=== PATIENT | male | born 1945 | race Caucasian/White ===

== ENCOUNTER 2018-01-11 12:19 | Inpatient (IN) | payer MEDICARE, BC ==
[2018-01-11] MEDS ORDERED: cefTRIAXone\\ROCEPHIN 2 GM VIAL ONE (12:48)
[2018-01-11 13:22] LABS: ALT (SGPT) 13 U/L (8-55); AST (SGOT) 14 U/L (5-34); Albumin 3.7 g/dL (3.4-4.8); Alkaline Phosphatase 71 U/L (40-150); Anion Gap 15 mmol/L (10-20); BUN (Urea Nitrogen) 18 mg/dL (8.4-25.7); Bilirubin, Total 2.2 mg/dL (0.2-1.2); Calc. Creatinine Clearance 0 mL/min (70-130); Calcium 9.2 mg/dL (7.8-10.44); Carbon Dioxide 23 mmol/L (23-31); Chloride 101 mmol/L (98-107); Estimated GFR-MDRD 39; Globulin 3.2 g/dL (2.4-3.5); Glucose 201 mg/dL (83-110); Potassium 3.2 mmol/L (3.5-5.1); Protein, Total 6.9 g/dL (5.8-8.1); Sodium 136 mmol/L (136-145)
[2018-01-11 13:27] LABS: CKMB 1.4 ng/mL (0-6.6); Troponin I Less than 0.010 ng/mL (< 0.028)
[2018-01-11 13:29] LABS: Clarity Cloudy (Clear); Leukocyte Moderate (Negative); Specific Gravity, Urine 1.025 (1.005-1.030); pH, Urine 5.5 (5.0-9.0)
[2018-01-11 13:30] LABS: Bilirubin Small (Negative); Blood, Urine Moderate (Negative); Glucose, Urine (Dipstick) Negative (Negative); Nitrite Positive (Negative); Protein, Urine (Dipstick) 100 mg/dL (Neg-Trace)
[2018-01-11 13:32] LABS: Bacteria/HPF 2+ HPF (None Seen); Crystals/HPF None Seen HPF (Negative); Hyaline Casts/LPF NONE SEEN LPF (0-3 Hyaline); Other Casts/LPF None Seen LPF (0-3 Hyaline); Oval Fat Bodies/HPF None Seen HPF (None Seen); Renal Epithelial None Seen HPF (0-3); Sperm/HPF None Seen HPF (None Seen); Squamous Epithelial None Seen HPF (0-3); Transitional Epithelial NONE SEEN HPF (0-3); Trichomonas/HPF None Seen HPF (None Seen); Yeast-All Forms None Seen HPF (None Seen)
[2018-01-11 13:37] LABS: Band 4 % (5-11); Hemoglobin 14.9 g/dL (14.0-18.0); Lymphocytes 4 % (21-51); MDiff Complete? YES; Macrocytosis SLIGHT = 6-15 cells (100X) (0-5/hpf); Mean Corpuscular HGB CONC 36.9 g/dL (32.0-36.0); Mean Corpuscular Hemoglobin 32.7 pg (27.0-31.0); Mean Corpuscular Volume 88.5 fL (78.0-98.0); Mean Platelet Volume 7.8 fL (7.4-10.4); Monocytes 10 % (0-10); Neutrophil 82 % (42-75); Platelet Clumps SLIGHT; Platelet Count 203 thou/uL (130-400); Polychromasia SLIGHT = 2-3 cells (100X) (0-2/hpf); RBC Distribution Width 11.8 % (11.5-14.5); Red Blood Cell (RBC) Count 4.54 mill/uL (4.70-6.10)
[2018-01-11] MEDS ORDERED: Potassium Chloride 20 MEQ TAB ONE (13:52)
--- NOTE | 2018-01-11 14:14 | RAD ---
CHEST ONE VIEW: Comparison: 01-03-07 History: Fever. FINDINGS: Normal cardiac silhouette. Pulmonary vessels and hilum are normal. Costophrenic angles are clear. No consolidation or mass. No pneumothorax or osseous abnormality. IMPRESSION: No acute cardiopulmonary process. POS: [facility]
[2018-01-11] MEDS ORDERED: Ondansetron ODT 4 MG TAB PO PRN (16:38)
[2018-01-11] MEDS ORDERED: Ondansetron PF 4 MG/2 ML Vial IVP PRN (16:38)
[2018-01-11] MEDS ORDERED: traMADol HCl 50 MG TAB PO PRN (18:18)
[2018-01-11] MEDS ORDERED: PROVENTIL INHALER 6.7 G (200 INHALATIONS) INH PRN ×3 (18:18→18:46)
[2018-01-11] MEDS ORDERED: HumaLOG 300 UNITS/3 ML VIAL SC PRN (18:22)
[2018-01-11] MEDS ORDERED: Dextrose 50% Abboject 50 ML SYRINGE SLOW IVP PRN (18:22)
[2018-01-11] MEDS ORDERED: Dextrose 5% in Water 1,000 ML IV PRN (18:22)
[2018-01-11] MEDS: Sodium Chloride 0.9% 1,000 ML IV SCH (18:35)
[2018-01-11] MEDS: Gabapentin 300 MG CAP PO SCH (21:01)
[2018-01-11] MEDS: Mometasone/Formoterol 60 PUFF AER INH SCH (21:01)
[2018-01-11] MEDS: Famotidine 20 MG TAB PO SCH (21:01)
[2018-01-11] MEDS: glipiZIDE 5 MG TAB PO SCH (21:01)
[2018-01-11] MEDS: Gabapentin 100 MG CAP PO SCH (21:01)
[2018-01-11] MEDS ORDERED: clonazePAM 1 MG TAB PO SCH (21:15)
[2018-01-11] MEDS ORDERED: Amitriptyline HCl 25 MG TAB PO SCH (21:15)
[2018-01-11] MEDS ORDERED: Nystatin Cream 15 GM TUBE TOP SCH (22:15)
[2018-01-12] MEDS: Sodium Chloride 0.9% 1,000 ML IV SCH ×4 (00:19→23:17)
[2018-01-12 05:21] LABS: #Basophils 0.1 thou/uL (0.0-0.2); #Lymphocytes 1.7 thou/uL (1.20-3.40); #Monocytes 1.7 thou/uL (0.11-0.59); #Neutrophils 19.6 thou/uL (1.40-6.50); %Basophils 0.3 % (0.0-1.0); %Eosinophils 0.1 % (0.0-10.0); %Lymphocytes 7.5 % (21.0-51.0); %Monocytes 7.3 % (0.0-10.0); %Neutrophils 84.8 % (42.0-75.0); Hemoglobin 13.4 g/dL (14.0-18.0); Mean Corpuscular HGB CONC 35.8 g/dL (32.0-36.0); Mean Corpuscular Hemoglobin 32.3 pg (27.0-31.0); Mean Corpuscular Volume 90.2 fL (78.0-98.0); Mean Platelet Volume 8.1 fL (7.4-10.4); Platelet Count 164 thou/uL (130-400); Red Blood Cell (RBC) Count 4.15 mill/uL (4.70-6.10); White Blood Cell (WBC) Count 23.2 thou/uL (4.8-10.8)
[2018-01-12 05:53] LABS: ALT (SGPT) 10 U/L (8-55); AST (SGOT) 15 U/L (5-34); Albumin 3.1 g/dL (3.4-4.8); Alkaline Phosphatase 61 U/L (40-150); Anion Gap 13 mmol/L (10-20); BUN (Urea Nitrogen) 18 mg/dL (8.4-25.7); Bilirubin, Total 1.2 mg/dL (0.2-1.2); Calc. Creatinine Clearance 89 mL/min (70-130); Calcium 8.3 mg/dL (7.8-10.44); Carbon Dioxide 21 mmol/L (23-31); Chloride 105 mmol/L (98-107); Estimated GFR-MDRD 46; Globulin 2.8 g/dL (2.4-3.5); Glucose 97 mg/dL (83-110); Potassium 3.2 mmol/L (3.5-5.1); Protein, Total 5.9 g/dL (5.8-8.1); Sodium 136 mmol/L (136-145)
[2018-01-12] MEDS: Mometasone/Formoterol 60 PUFF AER INH SCH ×2 (06:28→18:27)
[2018-01-12] MEDS: Gabapentin 300 MG CAP PO SCH ×3 (08:37→21:15)
[2018-01-12] MEDS: Gabapentin 100 MG CAP PO SCH ×2 (08:38→15:00)
[2018-01-12] MEDS: Aspirin 81 mg Enteric Coated Tablet PO SCH (08:38)
[2018-01-12] MEDS: Potassium Chloride 10 MEQ TAB PO SCH (08:38)
[2018-01-12] MEDS: glipiZIDE 5 MG TAB PO SCH ×2 (08:38→22:17)
[2018-01-12] MEDS: Nystatin Cream 15 GM TUBE TOP SCH ×2 (08:48→22:17)
[2018-01-12] MEDS ORDERED: Amitriptyline HCl 25 MG TAB PO SCH (09:00)
[2018-01-12] MEDS ORDERED: clonazePAM 1 MG TAB PO SCH (09:00)
[2018-01-12] MEDS: Acetaminophen 325 MG TAB PO PRN (09:12)
[2018-01-12] MEDS ORDERED: cefTRIAXone\\ROCEPHIN 2 GM in Sodium Chloride 0.9% 100 ML IVPB SCH ×2 (13:00→13:15)
[2018-01-12] MEDS ORDERED: cefTRIAXone\\ROCEPHIN 1 GM in Sodium Chloride 0.9% 100 ML IVPB SCH (13:00)
[2018-01-12] MEDS: Levofloxacin 750 mg/D5W 500 MG in Premix Bag 1 BAG IVPB SCH (16:42)
[2018-01-12] MEDS: Famotidine 20 MG TAB PO SCH (21:15)
[2018-01-12] MEDS: Amitriptyline HCl 25 MG TAB PO SCH (21:15)
[2018-01-12] MEDS: clonazePAM 1 MG TAB PO SCH (21:15)
[2018-01-12] MEDS: Nystatin Powder 15 GM BOT TOP SCH (23:19)
[2018-01-13] MEDS: Sodium Chloride 0.9% 1,000 ML IV SCH ×4 (04:45→18:08)
[2018-01-13 05:50] LABS: #Basophils 0.1 thou/uL (0.0-0.2); #Eosinphils 0.2 thou/uL (0.0-0.7); #Lymphocytes 1.5 thou/uL (1.20-3.40); #Monocytes 0.9 thou/uL (0.11-0.59); #Neutrophils 11.7 thou/uL (1.40-6.50); %Basophils 0.5 % (0.0-1.0); %Eosinophils 1.7 % (0.0-10.0); %Lymphocytes 10.4 % (21.0-51.0); %Monocytes 6.2 % (0.0-10.0); %Neutrophils 81.2 % (42.0-75.0); Mean Corpuscular Hemoglobin 31.5 pg (27.0-31.0); Mean Corpuscular Volume 90.1 fL (78.0-98.0); Platelet Count 153 thou/uL (130-400); RBC Distribution Width 12.1 % (11.5-14.5); Red Blood Cell (RBC) Count 3.81 mill/uL (4.70-6.10); White Blood Cell (WBC) Count 14.4 thou/uL (4.8-10.8)
[2018-01-13 06:02] LABS: ALT (SGPT) 19 U/L (8-55); AST (SGOT) 95 U/L (5-34); Albumin 2.9 g/dL (3.4-4.8); Alkaline Phosphatase 61 U/L (40-150); Anion Gap 11 mmol/L (10-20); BUN (Urea Nitrogen) 19 mg/dL (8.4-25.7); Bilirubin, Total 0.5 mg/dL (0.2-1.2); Calc. Creatinine Clearance 100 mL/min (70-130); Calcium 8.1 mg/dL (7.8-10.44); Carbon Dioxide 21 mmol/L (23-31); Chloride 109 mmol/L (98-107); Estimated GFR-MDRD 53; Globulin 2.7 g/dL (2.4-3.5); Glucose 85 mg/dL (83-110); Potassium 3.3 mmol/L (3.5-5.1); Protein, Total 5.6 g/dL (5.8-8.1); Sodium 138 mmol/L (136-145)
[2018-01-13] MEDS: Mometasone/Formoterol 60 PUFF AER INH SCH ×2 (06:07→18:04)
[2018-01-13] MEDS: Acetaminophen 325 MG TAB PO PRN (08:24)
[2018-01-13] MEDS: Gabapentin 300 MG CAP PO SCH ×2 (08:24→21:24)
[2018-01-13] MEDS: Potassium Chloride 10 MEQ TAB PO SCH (08:24)
[2018-01-13] MEDS: Aspirin 81 mg Enteric Coated Tablet PO SCH (08:24)
[2018-01-13] MEDS: Floranex Packet PO SCH (08:25)
[2018-01-13] MEDS: Nystatin Powder 15 GM BOT TOP SCH ×2 (08:27→21:27)
[2018-01-13] MEDS ORDERED: glipiZIDE 5 MG TAB PO SCH (09:00)
[2018-01-13] MEDS: HumaLOG 300 UNITS/3 ML VIAL SC PRN (12:43)
[2018-01-13] MEDS: cefTRIAXone\\ROCEPHIN 2 GM in Sodium Chloride 0.9% 100 ML IVPB SCH (12:46)
[2018-01-13] MEDS: Levofloxacin 750 mg/D5W 500 MG in Premix Bag 1 BAG IVPB SCH (16:56)
[2018-01-13] MEDS: Amitriptyline HCl 25 MG TAB PO SCH (21:24)
[2018-01-13] MEDS: Famotidine 20 MG TAB PO SCH (21:24)
[2018-01-13] MEDS: clonazePAM 1 MG TAB PO SCH (21:24)
[2018-01-13 22:53] VITALS: BMI 44.8
[2018-01-14] MEDS: Sodium Chloride 0.9% 1,000 ML IV SCH (03:22)
[2018-01-14] MEDS: Mometasone/Formoterol 60 PUFF AER INH SCH ×2 (06:10→18:35)
[2018-01-14] MEDS: Floranex Packet PO SCH (08:09)
[2018-01-14] MEDS: Aspirin 81 mg Enteric Coated Tablet PO SCH (08:09)
[2018-01-14] MEDS: Gabapentin 300 MG CAP PO SCH ×2 (08:09→20:37)
[2018-01-14] MEDS: Potassium Chloride 10 MEQ TAB PO SCH (08:10)
[2018-01-14] MEDS: Acetaminophen 325 MG TAB PO PRN (08:10)
[2018-01-14] MEDS: Nystatin Powder 15 GM BOT TOP SCH ×2 (08:10→20:38)
[2018-01-14] MEDS: cefTRIAXone\\ROCEPHIN 2 GM in Sodium Chloride 0.9% 100 ML IVPB SCH (12:46)
[2018-01-14] MEDS: Levofloxacin 750 mg/D5W 500 MG in Premix Bag 1 BAG IVPB SCH (16:58)
[2018-01-14] MEDS: HumaLOG 300 UNITS/3 ML VIAL SC PRN (18:39)
[2018-01-14] MEDS: Famotidine 20 MG TAB PO SCH (20:33)
[2018-01-14] MEDS: Amitriptyline HCl 25 MG TAB PO SCH (20:35)
[2018-01-14] MEDS: clonazePAM 1 MG TAB PO SCH (20:37)
--- NOTE | 2018-01-14 23:42 | HP ---
CHIEF COMPLAINT: Weakness and dizziness. HISTORY OF PRESENT ILLNESS: Patient is a 72-year-old white male who presented to the emergency room with increased weakness and dizziness over 2 weeks, worse within 24 hours prior to admission. The pa maryan says he got up off the floor and fell. He could not get up and family brought him to the [facility] ency room. The patient reports some increased low back pain and increased urinary incontinence with urgency. He also had fevers and chills up to greater than 102 over the last 24 hours with decreased appetite and increased lethargy. The patient says when he fell, he had no chest pain or shortness of breath. He did feel some dizziness which he has had chronically off and on which he took some mecli zine for in the past. No significant injury reported. No head injury, no loss of consciousness, no seizure-like activity when he fell. In the emergency room, the patient is a full evaluation and was found to be consistent with sepsis secondary to urinary tract infection requiring admission to the [facility]. PAST MEDICAL HISTORY: 1. Chronic obstructive pulmonary disease mild, on inhalers. 2. Noninsulin dependent diabetes mellitus. 3. Gastroesophageal reflux disease. 4. Hyperlipidemia. 5. Chronic low back pain due to degenerative joint disease. 6. History of mild renal insufficiency. PAST SURGICAL HISTORY: Includes bilateral knee surgery. SOCIAL HISTORY: Patient denies any recent alcohol, smoking or social drug use. The patient is usual ly independent in all activities of daily living. He is retired from [employer]. He has h ad increased weakness over the last few weeks as in HPI. MEDICATIONS: Ranitidine 300 mg daily, aspirin 81 mg daily, tramadol 50 mg p.o. q.6 hours p.r.n. pain , clonazepam 1 mg p.o. at bedtime for insomnia, amitriptyline 50 mg p.o. at bedtime for insomnia, maryan apentin 800 mg t.i.d., glipizide 5 mg b.i.d., losartan/hydrochlorothiazide 100/25 daily, meclizine 25 mg p.o. q.8 hours p.r.n. dizziness. ALLERGIES: No known drug allergies. REVIEW OF SYSTEMS: Patient denies any recent visual changes, no URI-like symptoms, no sore throat. Patient denies any chest pain, no shortness of breath, no nausea, vomiting or diarrhea. Patient has had decreased appetite. Reports increased urinary urgency with frequency and incontinence. No hemat uria reported. The patient denies any significant weight loss nor weight gain, but has a generalized dizziness and weakness as reported in HPI. No recent rashes noted. Low back pain is worse than usu al, but he has chronic low back pain. Patient denies any depression. PHYSICAL EXAMINATION: GENERAL: Obese white male, alert and oriented, but lethargic, in no obvious distress. VITAL SIGNS: Blood pressure 121/80, respiratory rate was 26, O2 sat was 2 liters, 93% on admission, pulse was 110, temperature 101.2. HEENT: Atraumatic, normocephalic. Extraocular movements are intact. Pupils are equal, round, and r eactive to light and accommodation. Oropharynx; mucous membranes were dry. NECK: Supple, no masses palpated. CHEST: Clear to auscultation bilaterally. HEART: Irregular and rapid rate and rhythm. ABDOMEN: Obese, soft, nontender, nondistended, no masses were palpated. GENITOURINARY: Showed some rash in the intertrigo area consistent with tinea of the groin. No edema was noted to the lower extremities. BACK: Had no obvious CVA tenderness. There was some paravertebral mild tenderness in the lower lumb ar region. LABORATORY DATA AND IMAGING DATA: CBC; he had a white count 29,000 with H&H of 14.9 and 40.2. Chemi stry was significant for sodium 136, potassium 3.2, creatinine 1.74, BUN of 18, glucose was 201. Uri ne was significant for positive protein, moderate leukocyte esterase, greater than 50 WBCs and 2+ tessy teria. Urine and blood cultures are pending. Chest x-ray and EKG showed no acute findings. ASSESSMENT AND PLAN: 1. Sepsis. The patient is afebrile, high white count, had a recent fall and some decreased mentatio n. His lactic acid though was in normal range. Patient appears to be dehydrated. We will start him on IV fluids, hydration, oxygen as needed and IV broad spectrum antibiotics. 2. Urinary tract infection, which was likely the cause of patient's sepsis. The patient has no hist ory of BPH. No urinary problems in the past. We will see how his urinary status does with IV antibi otics, Levaquin 500 mg IV q.24 hours and Rocephin 2 mg IV q.24 hours. 3. Noninsulin dependent diabetes mellitus. We will place the patient on routine medications. Hold if his appetite decreases and a sliding scale insulin as needed. 4. Hypertension. We will hold losartan and hydrochlorothiazide at this time since the patient's blo od pressure is low and he has signs of sepsis. DISPOSITION: The patient will likely be discharged to home. May need extended stay with swing bed i f he continues to be weak and debilitated. The patient is a FULL CODE. His case and care plan was d iscussed with both patient and .
[2018-01-15 05:03] LABS: #Basophils 0.1 thou/uL (0.0-0.2); #Eosinphils 0.2 thou/uL (0.0-0.7); #Lymphocytes 1.3 thou/uL (1.20-3.40); #Monocytes 0.9 thou/uL (0.11-0.59); #Neutrophils 5.4 thou/uL (1.40-6.50); %Basophils 0.8 % (0.0-1.0); %Eosinophils 2.8 % (0.0-10.0); %Lymphocytes 16.2 % (21.0-51.0); %Monocytes 10.8 % (0.0-10.0); %Neutrophils 69.4 % (42.0-75.0); Hemoglobin 11.9 g/dL (14.0-18.0); Mean Corpuscular HGB CONC 34.3 g/dL (32.0-36.0); Mean Corpuscular Hemoglobin 31.2 pg (27.0-31.0); Mean Platelet Volume 8.1 fL (7.4-10.4); Platelet Count 176 thou/uL (130-400); RBC Distribution Width 12.1 % (11.5-14.5); Red Blood Cell (RBC) Count 3.81 mill/uL (4.70-6.10); White Blood Cell (WBC) Count 7.8 thou/uL (4.8-10.8)
[2018-01-15 05:13] LABS: ALT (SGPT) 19 U/L (8-55); AST (SGOT) 20 U/L (5-34); Alkaline Phosphatase 64 U/L (40-150); Anion Gap 13 mmol/L (10-20); BUN (Urea Nitrogen) 16 mg/dL (8.4-25.7); Bilirubin, Total 0.3 mg/dL (0.2-1.2); Calc. Creatinine Clearance 103 mL/min (70-130); Calcium 8.2 mg/dL (7.8-10.44); Carbon Dioxide 22 mmol/L (23-31); Chloride 108 mmol/L (98-107); Estimated GFR-MDRD 52; Globulin 2.8 g/dL (2.4-3.5); Glucose 169 mg/dL (83-110); Potassium 3.5 mmol/L (3.5-5.1); Protein, Total 5.8 g/dL (5.8-8.1); Sodium 139 mmol/L (136-145)
[2018-01-15 05:59] VITALS: BP 111/67; TEMP 97.8
[2018-01-15] MEDS: Mometasone/Formoterol 60 PUFF AER INH SCH (06:23)
[2018-01-15] MEDS ORDERED: Ibuprofen 100 MG/5 ML UDCUP ONE (08:13)
[2018-01-15] MEDS: Gabapentin 300 MG CAP PO SCH (08:14)
[2018-01-15] MEDS: Floranex Packet PO SCH (08:14)
[2018-01-15] MEDS: Aspirin 81 mg Enteric Coated Tablet PO SCH (08:14)
[2018-01-15] MEDS: Potassium Chloride 10 MEQ TAB PO SCH (08:14)
[2018-01-15] MEDS: Nystatin Powder 15 GM BOT TOP SCH (08:15)
== END 2018-01-15 09:53 | disposition swing bed (61) | DRG 872 ==
LOC: BURERS 12:19 → BURMED 14:28
PROVIDERS: ADMIT Family Medicine; ATTEND Family Medicine
DX: A41.9 Sepsis, unspecified organism (principal); N39.0 Urinary tract infection, site not specified; Z68.41 Body mass index [BMI] 40.0-44.9, adult; J44.9 Chronic obstructive pulmonary disease, unspecified; E11.9 Type 2 diabetes mellitus without complications; K21.9 Gastro-esophageal reflux disease without esophagitis; E78.5 Hyperlipidemia, unspecified; M19.90 Unspecified osteoarthritis, unspecified site; E66.9 Obesity, unspecified; E86.0 Dehydration; I10 Essential (primary) hypertension; Z91.81 History of falling; F41.9 Anxiety disorder, unspecified; G47.33 Obstructive sleep apnea (adult) (pediatric)
CPT/HCPCS: 36415; 36416; 71045; 80053; 81003; 81015; 82553; 83605; 84443; 84484; 85025; 87040; 87077; 87086; 87186; 87804; 93005; 94664; 96365; 96366; G8978-GP-CM; G8979-GP-CL; G8987-GO-CL; G8988-GO-CI; J0696; J1956; J7050

== ENCOUNTER 2018-01-15 10:00 | Inpatient (IN) | payer MEDICARE, BC ==
[2018-01-15 11:25] VITALS: BMI 44.8
[2018-01-15] MEDS ORDERED: Acetaminophen 325 MG TAB PO PRN (11:30)
[2018-01-15] MEDS ORDERED: Dextrose 50% Abboject 50 ML SYRINGE IVP PRN (11:31)
[2018-01-15] MEDS ORDERED: Dextrose 5% in Water 1,000 ML IV PRN (11:31)
[2018-01-15] MEDS ORDERED: PROVENTIL INHALER 6.7 G (200 INHALATIONS) INH PRN (11:31)
[2018-01-15] MEDS ORDERED: HumaLOG 300 UNITS/3 ML VIAL SC PRN (11:32)
[2018-01-15] MEDS ORDERED: Ondansetron PF 4 MG/2 ML Vial IVP PRN (11:33)
[2018-01-15] MEDS ORDERED: Ondansetron ODT 4 MG TAB PO PRN (11:34)
[2018-01-15] MEDS ORDERED: traMADol HCl 50 MG TAB PO PRN (11:38)
[2018-01-15] MEDS: cefTRIAXone\\ROCEPHIN 2 GM in Sodium Chloride 0.9% 100 ML IVPB SCH (13:25)
[2018-01-15] MEDS: HumaLOG 300 UNITS/3 ML VIAL SC PRN (17:37)
[2018-01-15] MEDS: Mometasone/Formoterol 60 PUFF AER INH SCH (18:11)
[2018-01-15] MEDS: Amitriptyline HCl 25 MG TAB PO SCH (19:39)
[2018-01-15] MEDS: clonazePAM 1 MG TAB PO SCH (19:39)
[2018-01-15] MEDS: Gabapentin 300 MG CAP PO SCH (19:40)
[2018-01-15] MEDS: Famotidine 20 MG TAB PO SCH (19:40)
[2018-01-15] MEDS: Nystatin Powder 15 GM BOT TOP SCH (19:41)
[2018-01-16] MEDS: Mometasone/Formoterol 60 PUFF AER INH SCH ×2 (06:10→18:22)
[2018-01-16] MEDS: Potassium Chloride 10 MEQ TAB PO SCH (08:01)
[2018-01-16] MEDS: HumaLOG 300 UNITS/3 ML VIAL SC PRN ×3 (08:01→18:21)
[2018-01-16] MEDS: Floranex Packet PO SCH (08:02)
[2018-01-16] MEDS: Gabapentin 300 MG CAP PO SCH ×2 (08:02→19:59)
[2018-01-16] MEDS: Nystatin Powder 15 GM BOT TOP SCH ×2 (08:02→20:00)
[2018-01-16] MEDS: Aspirin 81 mg Enteric Coated Tablet PO SCH (08:02)
[2018-01-16] MEDS: cefTRIAXone\\ROCEPHIN 2 GM in Sodium Chloride 0.9% 100 ML IVPB SCH (13:19)
[2018-01-16] MEDS: Amitriptyline HCl 25 MG TAB PO SCH (19:59)
[2018-01-16] MEDS: clonazePAM 1 MG TAB PO SCH (20:00)
[2018-01-16] MEDS: Famotidine 20 MG TAB PO SCH (20:00)
[2018-01-17] MEDS: Mometasone/Formoterol 60 PUFF AER INH SCH ×2 (06:38→18:43)
[2018-01-17] MEDS: Potassium Chloride 10 MEQ TAB PO SCH (08:43)
[2018-01-17] MEDS: Floranex Packet PO SCH (08:43)
[2018-01-17] MEDS: Gabapentin 300 MG CAP PO SCH ×2 (08:43→20:56)
[2018-01-17] MEDS: Aspirin 81 mg Enteric Coated Tablet PO SCH (08:43)
[2018-01-17] MEDS: Nystatin Powder 15 GM BOT TOP SCH ×2 (08:44→20:58)
[2018-01-17] MEDS: cefTRIAXone\\ROCEPHIN 2 GM in Sodium Chloride 0.9% 100 ML IVPB SCH (12:51)
[2018-01-17] MEDS: Amitriptyline HCl 25 MG TAB PO SCH (20:56)
[2018-01-17] MEDS: Famotidine 20 MG TAB PO SCH (20:57)
[2018-01-17] MEDS: clonazePAM 1 MG TAB PO SCH (20:57)
[2018-01-18] MEDS: Mometasone/Formoterol 60 PUFF AER INH SCH (05:44)
[2018-01-18] MEDS: Potassium Chloride 10 MEQ TAB PO SCH (08:36)
[2018-01-18] MEDS: Floranex Packet PO SCH (08:37)
[2018-01-18] MEDS: Gabapentin 300 MG CAP PO SCH (08:37)
[2018-01-18] MEDS: Aspirin 81 mg Enteric Coated Tablet PO SCH (08:37)
[2018-01-18] MEDS: Nystatin Powder 15 GM BOT TOP SCH (08:38)
[2018-01-18] MEDS: cefTRIAXone\\ROCEPHIN 2 GM in Sodium Chloride 0.9% 100 ML IVPB SCH (13:38)
[2018-01-18 15:00] LABS: #Basophils 0.1 thou/uL (0.0-0.2); #Eosinphils 0.3 thou/uL (0.0-0.7); #Lymphocytes 1.9 thou/uL (1.20-3.40); #Neutrophils 4.6 thou/uL (1.40-6.50); %Basophils 1.3 % (0.0-1.0); %Eosinophils 3.6 % (0.0-10.0); %Lymphocytes 23.8 % (21.0-51.0); %Monocytes 12.7 % (0.0-10.0); %Neutrophils 58.6 % (42.0-75.0); Hemoglobin 12.5 g/dL (14.0-18.0); Mean Corpuscular HGB CONC 35.3 g/dL (32.0-36.0); Mean Corpuscular Hemoglobin 31.6 pg (27.0-31.0); Mean Corpuscular Volume 89.3 fL (78.0-98.0); Platelet Count 272 thou/uL (130-400); Red Blood Cell (RBC) Count 3.96 mill/uL (4.70-6.10); White Blood Cell (WBC) Count 7.9 thou/uL (4.8-10.8)
[2018-01-18 15:16] LABS: ALT (SGPT) 16 U/L (8-55); AST (SGOT) 18 U/L (5-34); Albumin 3.2 g/dL (3.4-4.8); Alkaline Phosphatase 57 U/L (40-150); Anion Gap 14 mmol/L (10-20); BUN (Urea Nitrogen) 19 mg/dL (8.4-25.7); Calc. Creatinine Clearance 106 mL/min (70-130); Calcium 8.6 mg/dL (7.8-10.44); Carbon Dioxide 22 mmol/L (23-31); Chloride 107 mmol/L (98-107); Estimated GFR-MDRD 54; Glucose 190 mg/dL (83-110); Potassium 3.7 mmol/L (3.5-5.1); Protein, Total 6.2 g/dL (5.8-8.1); Sodium 139 mmol/L (136-145)
[2018-01-18 15:36] LABS: Bilirubin, Total 0.3 mg/dL (0.2-1.2)
[2018-01-18 18:27] VITALS: BP 138/65; TEMP 98
== END 2018-01-18 18:25 | disposition home or self-care (01) | DRG 690 ==
LOC: BURMED 10:00
PROVIDERS: ADMIT Family Medicine; ATTEND Family Medicine
DX: N39.0 Urinary tract infection, site not specified (principal); Z68.41 Body mass index [BMI] 40.0-44.9, adult; J44.9 Chronic obstructive pulmonary disease, unspecified; E11.9 Type 2 diabetes mellitus without complications; K21.9 Gastro-esophageal reflux disease without esophagitis; E78.5 Hyperlipidemia, unspecified; M19.90 Unspecified osteoarthritis, unspecified site; G47.00 Insomnia, unspecified; E66.9 Obesity, unspecified; I10 Essential (primary) hypertension
CPT/HCPCS: 36416; 80053; 85025; 94664; 36415-59; G8978-GP-CL; G8979-GP-CJ; G8987-GO-CM; G8988-GO-CI; J0696; J1956; J7050

== ENCOUNTER 2024-03-25 19:35 | Emergency (ER) | payer MEDICARE, OTHER ==
[~2024-03-25 19:35] MED LIST: Calcium Chloride 1 GM/10 ML Abboject SYRINGE ONE; Dextrose 25% Abboject 10 ML SYRINGE ONE; EPINEPHrine 1 MG/10 ML Abboject SYRINGE ONE; EPINEPHrine 1 MG/ML VIAL ONE; Sodium Bicarb 5 MEQ/10 ML Abboject 4.2% SYRINGE ONE
[2024-03-25] MEDS ORDERED: NOREPINEPHRINE 8 MG/250 ML-D5W 250 ML ONE (19:42)
[2024-03-25 20:08] LABS: Hematocrit 35.1 % (42.0-52.0); Hemoglobin 11.8 g/dL (14.0-18.0); Mean Corpuscular HGB CONC 33.6 g/dL (32.0-36.0); Mean Corpuscular Hemoglobin 31.4 pg (27.0-31.0); Mean Corpuscular Volume 93.6 fl (78.0-98.0); Mean Platelet Volume 6.9 fL (7.4-10.4); Platelet Count 231 10x3/uL (130-400); Red Blood Cell (RBC) Count 3.75 mill/uL (4.70-6.10); White Blood Cell (WBC) Count 21.8 10x3/uL (4.8-10.8)
[2024-03-25 20:14] LABS: INR-International Normal Ratio 1.3; Prothrombin Time 16.6 sec (12.0-14.7)
[2024-03-25 20:15] LABS: PTT 42.5 sec (22.9-36.1)
[2024-03-25] MEDS ORDERED: Piperacillin/Tazobactam 4.5 GM VIAL ONE (20:16)
[2024-03-25] MEDS ORDERED: Acetaminophen 325 MG Suppository ONE (20:16)
[2024-03-25] MEDS ORDERED: fentaNYL 50 mcg/mL 1 mL Vial ONE ×2 (20:18→20:30)
[2024-03-25] MEDS ORDERED: Midazolam HCl 2 mg/2 ml Vial ONE ×2 (20:18→20:30)
[2024-03-25 20:21] LABS: Band 2 % (5-11); Eosinophils 2 % (0-10); Lymphocytes 18 % (21-51); MDiff Complete? YES; Monocytes 11 % (0-10); Neutrophil 63 % (42-75)
[2024-03-25 20:23] LABS: ALT (SGPT) 16 U/L (8-55); AST (SGOT) 22 U/L (5-34); Albumin 2.9 g/dL (3.4-4.8); Alkaline Phosphatase 51 U/L (40-110); Anion Gap 27 mmol/L (10-20); BUN (Urea Nitrogen) 16 mg/dL (8.4-25.7); Bilirubin, Total 0.7 mg/dL (0.2-1.2); CK (CPK) 180 U/L (30-200); Calc. Creatinine Clearance 0 mL/min (70-130); Calcium 9.9 mg/dL (7.8-10.44); Carbon Dioxide 13 mmol/L (23-31); Chloride 105 mmol/L (98-107); Estimated GFR 47; Globulin 3.2 g/dL (2.4-3.5); Glucose 267 mg/dL (83-110); Magnesium 2.2 mg/dL (1.6-2.6); Potassium 3.7 mmol/L (3.5-5.1); Protein, Total 6.1 g/dL (5.8-8.1); Sodium 141 mmol/L (136-145)
[2024-03-25 20:25] LABS: Critical Call Chem Troponin I NUR.LS6@2024; Troponin I 0.774 ng/mL (< 0.028)
== END 2024-03-25 21:00 | disposition short-term general hospital (02) ==
LOC: BURERS 19:35
DX: I46.9 Cardiac arrest, cause unspecified (principal); D72.829 Elevated white blood cell count, unspecified; J96.90 Respiratory failure, unspecified, unspecified whether with hypoxia or hypercapnia; E11.9 Type 2 diabetes mellitus without complications; E78.5 Hyperlipidemia, unspecified; Z79.82 Long term (current) use of aspirin; Z79.84 Long term (current) use of oral hypoglycemic drugs; Z79.899 Other long term (current) drug therapy
CPT/HCPCS: 31500; 36556; 51702; 71045; 80053; 82550; 82962; 83735; 83880; 84484; 85025; 85610; 85730; 87428; 92950; 96374; 96375; 99285; J0171 ×2; J2250; J2543; J3010; 36415; 36416